=== PATIENT | female | born 1960 | race Caucasian/White ===

== ENCOUNTER 2017-10-07 05:49 | Day surgery (SDC) | payer OTHER, MEDICAID ==
[2017-10-07] MEDS ORDERED: MIDAZOLAM 1 MG/ML 2 ML INJ (07:44)
[2017-10-07] MEDS ORDERED: PROPOFOL 40 ML (07:44)
[2017-10-07] MEDS ORDERED: LIDOCAINE 2% (SDV) 5 ML INJ (07:44)
== END 2017-10-07 14:26 | disposition home or self-care (01) ==
LOC: GIL 05:49
DX: Z12.11 Encounter for screening for malignant neoplasm of colon (principal); K44.9 Diaphragmatic hernia without obstruction or gangrene; K21.9 Gastro-esophageal reflux disease without esophagitis; K29.70 Gastritis, unspecified, without bleeding; D12.6 Benign neoplasm of colon, unspecified; K64.8 Other hemorrhoids; E11.9 Type 2 diabetes mellitus without complications; I10 Essential (primary) hypertension; E66.9 Obesity, unspecified; Z68.39 Body mass index [BMI] 39.0-39.9, adult
CPT/HCPCS: 43239; 82962; 87081; 88305